=== PATIENT | male | born 1975 | race Caucasian/White ===

== ENCOUNTER 2024-05-26 12:52 | Emergency (ER) | payer OTHER, SELFPAY ==
[2024-05-26 12:59] VITALS: BP 139/84
[2024-05-26 13:21] LABS: % Basophils 0.6 % (0-2); % Eosinophils 0.4 % (0-6); % Immature Granulocytes 0.4 % (0-0.5); % Monocytes 3.9 % (1.7-9.3); % Neutrophils 85.7 % (42.2-75.2); Absolute Basophils 0.1 10^3/uL (0-0.2); Absolute Lymphocytes 0.7 10^3/uL (1.2-3.4); Absolute Monocytes 0.3 10^3/uL (0.1-0.6); Absolute Neutrophils 6.6 10^3/uL (1.4-6.5); Hematocrit 47.4 % (39.0-52.0); Hemoglobin 16.3 g/dL (13.0-18.0); Mean Corp Hgb Conc. 34.4 g/dL (33.0-37.0); Mean Corpuscular Volume 90.3 fL (80.0-94.0); Mean Platelet Volume 9.4 fL (7.4-10.4); Nucleated Red Blood Cells % 0 % (-); Platelet Count 149 10^3/uL (130-400); Red Blood Cell Count 5.25 10^6/uL (4.70-6.10); Red Cell Dist. Width 12.5 % (11.5-14.5); White Blood Cell Count 7.7 10^3/uL (4.8-10.8)
[2024-05-26 13:35] LABS: ALT (SGPT) 27 U/L (0-50); AST (SGOT) 24 U/L (17-59); Albumin 4.7 g/dl (3.5-5.0); Alkaline Phosphatase 49 U/L (38-126); Blood Urea Nitrogen 14 mg/dl (9-20); Calcium 9.3 mg/dl (8.4-10.2); Carbon Dioxide 27 mmol/L (22-30); Chloride 102 mmol/L (98-107); Glucose 175 mg/dl (70-99); Potassium 4.2 mmol/L (3.5-5.1); Sodium 136 mmol/L (135-145); Total Bilirubin 2.2 mg/dl (0.2-1.3); Total Protein 7.1 g/dl (6.3-8.2); eGFR > 60.00
[2024-05-26 14:02] LABS: TSH Reflex To Free T4 0.85 uIU/ml (0.47-4.68)
[2024-05-26 14:24] VITALS: BMI 31.9
[2024-05-26 14:26] VITALS: BP 121/82
--- NOTE | 2024-05-26 14:46 | ED.GENMED ---
History of Present Illness
General
Chief Complaint: Heart Rate Problem
Time Seen by Provider: 05/26/24 14:13
History of Present Illness
History of Present Illness:
48-year-old male presents to the emergency department for evaluation of frequent bouts of heart palpitations and irregular heart rhythm whenever he exercises. States his symptoms lately have been occurring even in the absence of vigorous exercise.
No chest pain or shortness of breath or any exercising however does note lightheadedness. No known family history of cardiac arrhythmia. No fevers or chills. No nausea or vomiting. Currently feels well.
Review of Systems
Review of Systems
Allergies reviewed?: Yes
All Other Systems: ROS reviewed and negative except as documented in HPI and ROS
Phy Exam
Physical Exam
Physical Exam:
GEN: Well appearing, NAD, WDWN
HEENT: Oral mucosa moist, no scleral icterus
Cardiac: Regular rate and rhythm, no murmurs
Lung: No respiratory distress, no tachypnea
MSK: No gross deformity or injuries
Skin: Good color, no pallor or jaundice, no rashes
Neuro: AO x3, moves all extremities freely
Psych: Calm, cooperative
Course
Orders/Labs/Results
Orders:
Orders
05/26/24 12:54
Electrocardiogram (*1) Urgent
Reason for Study: Chest Pain
EKG- Treatment ONCE
05/26/24 13:07
Complete Blood Count/With Diff Urgent
Comprehensive Metabolic Panel Urgent
TSH Reflex To Free T4 Urgent
Abnormal Lab Results
05/26/24
13:07
Absolute Neuts (auto) 6.6 H 10^3/uL
(1.4-6.5)
Absolute Lymphs (auto) 0.7 L 10^3/uL
(1.2-3.4)
Neutrophils % 85.7 H %
(42.2-75.2)
Lymphocytes % 9.0 L %
(20.5-51.1)
Glucose 175 H mg/dl
(70-99)
Total Bilirubin 2.2 H mg/dl
(0.2-1.3)
05/26/24 13:07
05/26/24 13:07
Vital Signs
Initial and Last Documented VS:
Initial Vital Signs
Temp Pulse Resp BP Pulse Ox
98.4 F 72 18 139/84 97
05/26/24 12:59 05/26/24 12:59 05/26/24 12:59 05/26/24 12:59 05/26/24 12:59
Last Documented Vital Signs
Temp Pulse Resp BP Pulse Ox
98.4 F 65 16 122/80 95
05/26/24 12:59 05/26/24 15:04 05/26/24 15:04 05/26/24 15:04 05/26/24 15:04
MDM/Problems Addressed
MDM/Problems Addressed:
Patient will be referred to cardiology as an outpatient for Holter monitor and further workup of potential cardiac arrhythmia. No signs of angina that would warrant urgent stress test.
*Critical Care Note
Total Time (30-74mins, 75-104mins- exclusive of procedures): Not Applicable
ED Attending Note
-
Portions of this chart may have been created with voice recognition software.� Occasional wrong word or��sound alike� substitutions may have occurred due to the inherent limitations of voice recognition software.
Discharge Plan
Departure
Patient Disposition: Home (Routine Discharge)
Date of Disposition: 05/26/24
Time of Disposition: 14:48
Patient with high blood pressure during this ER visit?: No
Discharge Problem:
Heart palpitations
Instructions: Palpitations (DC)
Referrals:
Arir,Jaime, DO [Active] -
Interventions
Interventions:
*Risk Screen - Suicide Last Done: 05/26/24 12:59
*General Assessment Last Done: 05/26/24 12:59
*Neglect/Abuse Screening Last Done: 05/26/24 12:59
ED- Fall Risk Assessment Last Done: 05/26/24 14:24
*ED COVID-19 Vaccine History Last Done: 05/26/24 14:24
*Nursing Disposition Last Done: 05/26/24 15:04
ED- Cardiac Assessment Last Done: 05/26/24 14:24
ED- Pulmonary Assessment Last Done: 05/26/24 14:24
Discharge Date and Time
Discharge Date/Time: 05/26/24 15:00
Print Language: MONTENEGRIN
--- NOTE | 2024-05-26 14:59 | EDRN ---
Reviewed discharge instructions with patient. Verbalized understanding. Ambulated with steady gait to the lobby.
[2024-05-26 15:04] VITALS: BP 122/80
== END 2024-05-26 15:00 | disposition home or self-care (01) ==
LOC: EMR 12:52
PROVIDERS: Emergency Medicine; EMERGENCY PHYSICIAN Emergency Medicine
DX: R00.2 Palpitations (principal)
CPT/HCPCS: 99284; 80053; 84443; 85025; 93005

== ENCOUNTER → 2024-12-24 08:35 | Outpatient (REF) | payer OTHER, SELFPAY | LOC: PAVMRI 08:35 | PROVIDERS: ATTENDING PHYSICIAN Internal Medicine Cardiovascular Disease; FAMILY PHYSICIAN Family Medicine | DX: R93.1 Abnormal findings on diagnostic imaging of heart and coronary circulation (principal); Z68.31 Body mass index [BMI] 31.0-31.9, adult; I77.810 Thoracic aortic ectasia | CPT/HCPCS: 75561; 75565; A9585 ==